=== PATIENT | female | born 1990 | race Caucasian/White ===

== ENCOUNTER 2017-10-11 18:10 | Inpatient (IN) ==
--- NOTE | 2017-10-11 18:04 | OB/GYN History & Physical ---
Date of Encounter: 10/11/17 Time of Encounter: 18:02 Assessment and Plan (1) SROM (spontaneous rupture of membranes) Current visit: Yes Status: Acute 27 y/o presents to L&D from [place] ED complaining of contractions for labor eval. Previous . Pt noted to be 2cm by physician in the ED, FHT 120 Pt transferred to [facility] and found to be ruptured and /-3 Pt admits do IVDU during current (last use 1.5 weeks ago meth), no PNC , does not know when LMP was. States she recently found out she was . Will obtain PN labs, HIV, Hep C, CBC, BMP, Type and screen, OB US, SW consult. Plan for based on history of primary , cervical dilation an SROM. (2) No care in current Current visit: Yes Status: Acute Qualifiers: Trimester: third trimester Qualified Code(s): O09.33 - Supervision of with insufficient care, third trimester (3) IVDU (intravenous drug user) Current visit: Yes Status: Acute (4) Obesity affecting in third trimester, antepartum Current visit: Yes Status: Acute History of Present Illness Chief complaint: Labor Eval HPI: Ms. Cruz is a 27 year old female at unknown gestational age who presents to L&D via EMS from [place] ED. She presented there after walking " a long way" from her mom's house. She states that she started feeling pressure and that she "had to poop" so her mom told her to go to the hospital. She states that this morning she was coughing and had thick, blood-tinged discharge. She notes some leaking vaginal fluid. She states that she can not recall when her LMP was, it may have been sometime before the 28 of January. She denies any PNC, stating she just found out recently that she was when her belly started getting bloated. She admits to IVDU, last used Meth IV or ICE (she can't remember which) about 1.5 weeks ago. She smokes cigarettes, but states not daily. She states that she had a previous 5 years ago. She is not sure why, but states she was in labor for 13 hours and asked if she wanted one. This was in [place]. Past Med Surg Social Fam HX - Past Medical History Medical history: no medical history Psychiatric history: no psych history - Past Surgical History Surgical History: , cholecystectomy - Social History Smoking Status: Current every day smoker Smokeless Tobacco Status: No Alcohol use: none Drug use: none Obstetrical History - Pregnancies : 2 Para: 1 Term: 1 : 0 Ab's: 0 Livin Medications and Allergies No Known Home Drugs 09/10/16 [History] 3 Allergy/AdvReac Type Severity Reaction Status Date / Time No Known Allergies Allergy Verified 12/22/15 23:20 Review of System OB All systems PM: reviewed and no additional remarkable complaints except as stated Exam - Constitutional Constitutional: well developed, well nourished, no acute distress, obese - HEENT HEENT: Normocephaly, Mucus Membranes Moist - Neck Neck exam: normal inspection, trachea midline - Lungs Respiratory exam: CTAB - Cardiovascular Cardiovascular exam: RRR, +S2 - Abdomen Abdomen: Present: bowel sounds normal, gravid, non tender - Extremities Extremities exam: normal capillary refill Deep Tendon Reflex Grade: 2+ Normal - Vagina Vagina: Present: normal moisture - Cervix Cervix: Present: discharge Dilation: 3 Effacement: 75 Station: -3 - Uterus Uterus exam: Present: normal size, normal contour - Anus/Rectum Anus/Rectum: Present: normal perianal skin - Comments Comments: track jimenez noted on arms Results All other labs normal.
[~2017-10-11 18:10] MED LIST: *HR* Nalbuphine 20 MG/ML AMPUL IVP PRN; Famotidine 20 MG/2 ML VIAL IVP PRN; Naloxone 0.4 MG/ML INJ IVP PRN; Ondansetron 4 MG/2 ML VIAL IVP PRN
[2017-10-11] MEDS ORDERED: Ringers Solution, Lactated 1,000 ML IVC SCH (18:15)
--- NOTE | 2017-10-11 18:33 | Anesthesia Evaluation PreOp ---
Date of Encounter: 10/11/17 Time of Encounter: 18:31 - Past History Planned Operation: csection Cardiac History: Denies any Significant Hx Pulmonary History: Smoker (less than 1 pack per day) FUR SEWER History: Denies Any Significant HX Other Medical History: Denies Any Significant HX Anesthesia History: No Prior Anesthetic Complications, Past Anesthesia (Lap nader) : Yes (no care, unknown gestation) Alcohol Use: none Drug use: none Medications and Allergies No Known Home Drugs 09/10/16 [History] 3 Allergy/AdvReac Type Severity Reaction Status Date / Time No Known Allergies Allergy Verified 12/22/15 23:20 - Meds/Allergy Pre-op Review Medications Reviewed: Yes Allergies Reviewed: Yes Beta Blockers on Current Med List: No Anesthesia Exam O2 Sat Height 1.68 m Weight 119 kg Height: 66 Weight: 119 NPO (# of Hours): greater than 8 hours - HEENT Pupil (Motor): Pupils equal Mallampati: II Teeth: Normal Oral Opening: Greater than 3 - FUR SEWER LOC: Oriented FUR SEWER Motor: Normal RUE, Normal LUE, Normal RLE, Normal LLE, Normal Face FUR SEWER Sensory: Normal: RUE, LUE, RLE, LLE, Face - Cardiac Rhythm: Regular Murmur: None JVD: No Carotid Bruit: No - Pulmonary Breath Sounds: bilateral Clear Respiratory Effort: Symmetrical Anesthesia Assess/Plan ASA Score: 2 Modified Marielena Scale for Level of Consciousness: Cooperative, oriented, and tranquil Anesthetic Plan: General (Plan B), Regional (Plan A) Monitoring Plan: Standard Monitors Recovery Plan: PACU
[2017-10-11] MEDS ORDERED: Morphine Sulfate/PF 5mg/10mL Vial ONE (18:42)
[2017-10-11] MEDS ORDERED: *HR* FentaNYL (PF) 100 MCG/2 ML VIAL ONE (18:42)
[2017-10-11 18:47] LABS: Basophils % 0.2 %; Eosinophils # 0.1 K/mcL (0.0-0.6); Eosinophils % 0.4 %; Hematocrit 36.5 % (35.3-44.9); Hemoglobin 11.9 g/dL (11.5-15.4); Immature Granulocytes % 0.5 % (0-4); Immature Platelets 3.5 % (1.1-6.1); Lymphocytes # 3.2 K/mcL (0.6-4.6); Lymphocytes % 23.9 %; Mean Corpuscular HGB Conc 32.6 g/dL (31.6-35.5); Mean Corpuscular Hemoglobin 26.2 pg (28.0-33.3); Mean Corpuscular Volume 80.2 fL (83.0-100.0); Monocytes # 0.6 K/mcL (0.0-1.3); Monocytes % 4.4 %; Neutrophils # 9.4 K/mcL (1.6-8.9); Platelet Count 314 K/mcL (140-400); Red Blood Count 4.55 M/mcL (3.82-4.97); Red Cell Distribution Width 13.5 % (11.5-14.5); Segmented Neutrophils % 70.6 %
[2017-10-11] MEDS ORDERED: Metoclopramide 10 MG/2 ML VIAL IVP ONE (18:51)
[2017-10-11 19:09] LABS: Albumin 3.3 g/dL (3.5-5.7); Albumin/Globulin Ratio 0.9 (1.1-2.2); Bilirubin,Direct 0.1 mg/dL (0.0-0.2); Bilirubin,Indirect 0.1 mg/dL (0.0-1.2); Bilirubin,Total 0.2 mg/dL (0.3-1.0); Globulin 3.6 g/dL (2.4-3.5); Total Protein 6.9 g/dL (6.4-8.9)
[2017-10-11] MEDS ORDERED: Ringers Solution, Lactated 1,000 ML ONE (19:39)
[2017-10-11] MEDS ORDERED: *HR* Promethazine 25 MG/ML VIAL IVP PRN (19:42)
[2017-10-11] MEDS ORDERED: *HR* OxyCODONE Immed Rel 5 MG TABLET PO PRN ×2 (19:42→23:29)
[2017-10-11] MEDS ORDERED: Ketorolac 30 MG/ML VIAL ONE (19:44)
[2017-10-11] MEDS ORDERED: *HR* Oxytocin 10 UNIT/ML VIAL IM ONE (19:55)
[2017-10-11] MEDS ORDERED: Oxytocin 20 units/ LR 1000 mL 20 UNIT/1,000 ML BAG IVC ONE ×2 (19:56→21:09)
--- NOTE | 2017-10-11 20:57 | OB/GYN Procedure Note ---
Section - Date of procedure: 10/11/17 Preop diagnosis: desires repeat , other (no care, IV drug user ) Post-op diagnosis: same Procedure: repeat low transverse Surgeon: Dragan Streeter Estimated blood loss (cc): 300 Was there an assistant store manager present: Yes Clinical Appeals Rn: Malorie Morley Anesthesiologist: Jaziel Mendoza Anesthesia Type: Spinal section complications: none Disposition: L&D Recovery Room Specimens: Placenta - Narrative Narrative: Patient was brought to the operating room with satisfactory spinal anesthesia. The abdomen was prepped and draped in a sterile fashion. A Pfannenstiel incision was made and carried sharply down to the level of fascia. The fascia was incised transversely. The fascia was dissected away from the underlying rectus muscles. With sharp and blunt dissection, the rectus muscles were divided in the midline. The perineum was entered bluntly. The incision was carried vertically with scissors. Transverse incision was made across the bladder peritoneum. The bladder was dissected away from the underlying lower uterine segment. Bladder retractor was placed to protect the bladder. The lower uterine segment was entered sharply with a scalpel. Incision was manually extended. Meconium stained amniotic fluid was encountered. Nuchal cord noted x2 , The 's head was pulled up and delivered easily as were the shoulders and body. The mouth and oropharynx were suctioned. The cord was clamped and cut. The infant was passed off to the waiting cement block maker in satisfactory condition. APGARS 8/8, weight 3000g(6lbs 10oz) Placenta was extracted completely and found to be intact. Uterus was explored and found to be empty. Uterus was massaged vigorously. Intravenous Pitocin was administered. The margins of the uterine incision were closed primarily with a running locking stitch of 0 Vicryl with adequate hemostasis. Secondary running locking stitch was placed for extra strength to the wound. The fascia was closed with a simple running stitch of 0 vicryl. The subcutaneous stitch was closed with 3-0 vicryl. The skin was closed with running subcuticular stitch of 4-0 vicryl. Patient was brought to the recovery room in satisfactory condition. There were no complications. All sponge, needle, and instrument counts were reported to be correct.
[2017-10-11] MEDS ORDERED: Sennosides 8.6 MG TABLET PO PRN (23:29)
[2017-10-11] MEDS ORDERED: Ondansetron 4 MG/2 ML VIAL IVP PRN (23:29)
[2017-10-11] MEDS ORDERED: Oxytocin 20 units/ LR 1000 mL 20 UNIT/1,000 ML BAG IVC SCH (23:29)
[2017-10-11] MEDS ORDERED: Simethicone 80 MG TAB.CHEW PO PRN (23:29)
[2017-10-11] MEDS ORDERED: Acetaminophen 325 MG TABLET PO PRN (23:29)
[2017-10-11] MEDS ORDERED: Naloxone 0.4 MG/ML INJ IVP PRN (23:29)
[2017-10-11] MEDS ORDERED: Metoclopramide 10 MG/2 ML VIAL IVP PRN (23:29)
[2017-10-12 02:39] LABS: Basophils % 0.2 %; Eosinophils # 0.1 K/mcL (0.0-0.6); Eosinophils % 0.4 %; Hematocrit 33.6 % (35.3-44.9); Hemoglobin 10.9 g/dL (11.5-15.4); Immature Granulocytes % 0.4 % (0-4); Lymphocytes # 3.1 K/mcL (0.6-4.6); Lymphocytes % 21.2 %; Mean Corpuscular HGB Conc 32.4 g/dL (31.6-35.5); Mean Corpuscular Volume 80.2 fL (83.0-100.0); Monocytes # 0.8 K/mcL (0.0-1.3); Monocytes % 5.3 %; Neutrophils # 10.6 K/mcL (1.6-8.9); Platelet Count 265 K/mcL (140-400); Red Blood Count 4.19 M/mcL (3.82-4.97); Red Cell Distribution Width 13.4 % (11.5-14.5); Segmented Neutrophils % 72.5 %
[2017-10-12] MEDS: Prenatal Vit/FA 1 EACH TABLET PO SCH (07:52)
[2017-10-12] MEDS: Ibuprofen 600 MG TABLET PO PRN ×2 (07:52→19:40)
--- NOTE | 2017-10-12 09:46 | OB/GYN Progress Note ---
Date of Encounter: 10/12/17 Time of Encounter: 09:45 - Assessment and Plan (1) delivery delivered Current Visit: Yes Status: Acute Pt meeting POD#1 milestones. Anticpate discharge home POD#2-3 (2) IVDU (intravenous drug user) Current Visit: Yes Status: Acute (3) Obesity affecting in third trimester, antepartum Current Visit: Yes Status: Acute Subjective - Subjective Patient reports: appetite normal, voiding normally, pain well controlled, ambulating normally : doing well Objective - Vital Signs Latest vital signs: Vital Signs Temp Pulse Resp BP Pulse Ox 10/12/17 08:08 97.5 F L 69 16 105/69 10/12/17 07:29 18 10/12/17 05:30 97.7 F 67 16 116/73 96 10/12/17 03:19 97.5 F L 10/12/17 02:15 97.1 F L 72 18 109/66 97 10/12/17 01:15 96.0 F L 73 16 109/66 97 10/12/17 00:40 96.1 F L 10/12/17 00:20 96.3 F L 10/12/17 00:15 66 16 116/76 96 10/11/17 23:45 79 16 110/73 95 10/11/17 23:43 95.1 F L 10/11/17 23:15 80 16 115/76 97 Intake and Output 10/11/17 10/12/17 10/12/17 23:59 07:59 15:59 Intake Total 0 / 0 120 / 120 Output Total 650 / 650 150 / 150 Balance -650 / -650 -30 / -30 Intake: Oral 0 / 0 Free Water 120 / 120 Output: Emesis 300 / 300 Catheter 350 / 350 150 / 150 Urethral (Hardy) 350 / 350 Other: Meal Breakfast Percent of Meal Consumed 100% Weight 119 kg - Exam Lungs: bilateral: normal Chest: Normal S1, Normal S2 Extremities: Present: edema (1+ bilaterally) Abdomen: Present: soft. Absent: tenderness Incision: Present: dressed (dressing with scant amount old drainage) Uterus: Present: firm - Labs Labs: Laboratory Results - last 24 hr 10/11/17 10/11/17 10/11/17 18:15 18:37 18:37 WBC 13.4 H RBC 4.55 Hgb 11.9 Hct 36.5 MCV 80.2 L MCH 26.2 L MCHC 32.6 RDW 13.5 Plt Count 314 MPV 10.0 Immature Gran % 0.5 Seg Neutrophils % 70.6 Lymphocytes % 23.9 Monocytes % 4.4 Eosinophils % 0.4 Basophils % 0.2 Neutrophils # 9.4 H Lymphocytes # 3.2 Monocytes # 0.6 Eosinophils # 0.1 Basophils # 0.0 Immature Plt Fraction 3.5 Total Bilirubin 0.2 L Direct Bilirubin 0.1 Indirect Bilirubin 0.1 AST 13 ALT 13 Alkaline Phosphatase 198 H Serum Total Protein 6.9 Albumin 3.3 L Globulin 3.6 H Albumin/Globulin Ratio 0.9 L Hep Bs Antigen Nonreactive HIV Ag/Ab Combo Qual Blood Type Antibody Screen 10/11/17 10/11/17 10/12/17 18:37 18:37 02:30 WBC 14.6 H RBC 4.19 Hgb 10.9 L Hct 33.6 L MCV 80.2 L MCH 26.0 L MCHC 32.4 RDW 13.4 Plt Count 265 MPV 10.0 Immature Gran % 0.4 Seg Neutrophils % 72.5 Lymphocytes % 21.2 Monocytes % 5.3 Eosinophils % 0.4 Basophils % 0.2 Neutrophils # 10.6 H Lymphocytes # 3.1 Monocytes # 0.8 Eosinophils # 0.1 Basophils # 0.0 Immature Plt Fraction Total Bilirubin Direct Bilirubin Indirect Bilirubin AST ALT Alkaline Phosphatase Serum Total Protein Albumin Globulin Albumin/Globulin Ratio Hep Bs Antigen HIV Ag/Ab Combo Qual Nonreactive Blood Type A POSITIVE Antibody Screen NEGATIVE
[2017-10-12] MEDS: *HR* OxyCODONE/APAP 5/325 TABLET PO PRN (19:40)
[2017-10-13] MEDS: *HR* OxyCODONE/APAP 5/325 TABLET PO PRN (07:31)
[2017-10-13] MEDS: Ibuprofen 600 MG TABLET PO PRN (07:32)
[2017-10-13] MEDS: Prenatal Vit/FA 1 EACH TABLET PO SCH (07:32)
[2017-10-13 07:54] VITALS: BP 105/63
--- NOTE | 2017-10-13 08:43 | Discharge Summary ---
Date of Encounter: 10/13/17 Time of Encounter: 08:40 - Discharge Diagnosis (1) delivery delivered Priority: Primary Status: Acute Comments: S/P Repeat C/S Day 2. VSS Pain is well controlled Lochia is light and without clots Voiding and passing stool without difficulty Tolerating regular diet; c/o increased abdominal bloating/gas, states passing flatus, bowel sound active Bottle feeding Discharge to guest. (2) IVDU (intravenous drug user) Priority: Secondary Status: Acute Comments: Dicussed with social work Patient denies any history of opiate abuse States she only used meth once and it was a time in her life when she said "f it ". Patient has multiple track jimenez along her forearms. [place] reviewed; no narcotic Rx in the past year from [place] and [facility] states found under patient's name, birthday, and zip code. Will discharge home with Rx for 3 days worth of [place] 5-325. (3) No care in current Priority: Secondary Status: Acute Qualifiers: Trimester: third trimester Qualified Code(s): O09.33 - Supervision of with insufficient care, third trimester - Discharge Medications Prescriptions: Ibuprofen [Motrin] 600 mg PO Q6HR PRN #30 tablet PRN Reason: Cramping Docusate [Colace] 100 mg PO BID #20 capsule Ferrous Sulfate 325 mg PO DAILY #60 tablet HYDROcodone/Acet 5/325 mg [[place] 5-325 mg] 1 tab PO Q6H PRN 3 Days #10 tab PRN Reason: moderate to severe pain Vit/FA 1 each PO DAILY #30 tablet Simethicone [Gas-X] 80 mg PO TID PRN #30 tab.chew PRN Reason: Dyspepsia Home Medications: Acetaminophen [Tylenol] 325 mg PO Q6HR PRN tablet 10/13/17 [Rx] Docusate [Colace] 100 mg PO BID #20 capsule 10/13/17 [Rx] Ferrous Sulfate 325 mg PO DAILY #60 tablet 10/13/17 [Rx] HYDROcodone/Acet 5/325 mg [[place] 5-325 mg] 1 tab PO Q6H PRN 3 Days #10 tab 10/13 [Rx] Ibuprofen [Motrin] 600 mg PO Q6HR PRN #30 tablet 10/13/17 [Rx] Vit/FA 1 each PO DAILY #30 tablet 10/13/17 [Rx] Simethicone [Gas-X] 80 mg PO TID PRN #30 tab.chew 10/13/17 [Rx] Allergies/Adverse Reactions: 3 Allergy/AdvReac Type Severity Reaction Status Date / Time No Known Allergies Allergy Verified 12/22/15 23:20 Data Procedures and tests throughout hospitalization: Laboratory Tests 10/11/17 10/11/17 10/11/17 18:15 18:37 18:37 WBC 13.4 H RBC 4.55 Hgb 11.9 Hct 36.5 MCV 80.2 L MCH 26.2 L MCHC 32.6 RDW 13.5 Plt Count 314 MPV 10.0 Immature Gran % 0.5 Seg Neutrophils % 70.6 Lymphocytes % 23.9 Monocytes % 4.4 Eosinophils % 0.4 Basophils % 0.2 Neutrophils # 9.4 H Lymphocytes # 3.2 Monocytes # 0.6 Eosinophils # 0.1 Basophils # 0.0 Immature Plt Fraction 3.5 Total Bilirubin 0.2 L Direct Bilirubin 0.1 Indirect Bilirubin 0.1 AST 13 ALT 13 Alkaline Phosphatase 198 H Serum Total Protein 6.9 Albumin 3.3 L Globulin 3.6 H Albumin/Globulin Ratio 0.9 L Hep Bs Antigen Nonreactive HIV Ag/Ab Combo Qual Blood Type Antibody Screen 10/11/17 10/11/17 10/12/17 18:37 18:37 02:30 WBC 14.6 H RBC 4.19 Hgb 10.9 L Hct 33.6 L MCV 80.2 L MCH 26.0 L MCHC 32.4 RDW 13.4 Plt Count 265 MPV 10.0 Immature Gran % 0.4 Seg Neutrophils % 72.5 Lymphocytes % 21.2 Monocytes % 5.3 Eosinophils % 0.4 Basophils % 0.2 Neutrophils # 10.6 H Lymphocytes # 3.1 Monocytes # 0.8 Eosinophils # 0.1 Basophils # 0.0 Immature Plt Fraction Total Bilirubin Direct Bilirubin Indirect Bilirubin AST ALT Alkaline Phosphatase Serum Total Protein Albumin Globulin Albumin/Globulin Ratio Hep Bs Antigen HIV Ag/Ab Combo Qual Nonreactive Blood Type A POSITIVE Antibody Screen NEGATIVE - Impressions ITS Impressions Ultrasound 10/11/17 17:52 IMPRESSION: Single live intrauterine with gestational age of 36 weeks 4 days by current sonographic biometry. The estimated due date is 11/04/2017. Limited study. No detailed anatomic survey performed. D/ / 10/11/2017 19:30:43 Patrick Crum MD / sara Interpreting Provider: Patrick Crum MD Date of admission: 10/11/17 18:10 Consults: 10/11/17 18:09 Consult to Reverse Logistics Analyst (W&C) [CONS] Stat Reason For Exam: Reason for SW Consult: No PNC, IVDU Discharging clinician: Ledy Downs Anticipated date of discharge: 10/13/17 - Patient Status Disposition: Home, Self-Care Condition: Good Functional capacity at discharge: independent ambulation Overall status at discharge: patient is progressing back to baseline - Discharge Instructions Follow Up With: Dragan Streeter MD [Partnered Physician] - (Follow up at 2 weeks and then at 6 weeks ) Additional Instructions: Perineal Care: Always wipe front to back Change your pad frequently Use your baldo bottle with warm water and spray front to back Do not douche, use tampons, have sexual intercourse or put anything in your vagina for 4-6 weeks after delivery Bleeding: Vaginal bleeding can last up to 6 weeks Your menstrual period may return as early as 6 weeks after you are discharged from the hospital Hesham/Stitches Care: Care Stitches will dissolve on their own You may shower with stitches or hesham Drip plain or soapy water over the incision to clean. Pat dry gently with a clean towel. Make sure you completely dry under the skin folds DO NOT USE powders, lotions, rubbing alcohol or hydrogen peroxide on or around your incision. This will slow your wound healing It is normal to have soreness, burning, tingling, itchiness and/or numbness as your incision heals Activity: Rest frequently Do not lift anything heavier than a gallon of milk, up to 10-15 pounds No driving for 2-4 weeks for delivery Take stairs slowly, one at a time Gradually increase your daily activity until you are back to your normal routine Do not exercise until you have had your follow-up appointment Bathing: Take a shower daily Do not take a tub bath for the first 4 weeks Diet: Drink plenty of water and fruit juices Eat a well-balanced diet with foods high in fiber such as fruits and vegetables Depression: Your hormones have a major impact on your feelings and emotions. Hormone imbalance may cause changes in your mood, creating unfamiliar thoughts and actions. Support is available to help you understand and cope with these feelings and mood changes. If you answer yes to any of the following questions, please call your health care provider: Are you having trouble sleeping? Are you feeling isolated? Have you lost your appetite? Are you having thoughts of hurting yourself or others? WARNING SIGNS: Heavy bleeding from the vagina (blood is bright red and soaks a sanitary pad in an hour or less.) Passing a blood clot larger than your fist Discharge from the vagina that has a bad odor Temperature over 100.4 F, or if you feel cold and have chills An episiotomy site that is warm, swollen or oozing. Use a mirror if needed Urination (pee) that is painful, very red and swollen or leaking fluid An incision that is painful, very red and swollen and leaking fluid An incision that has come open Breasts that are painful or full with flu like symptoms Redness, warmth or swelling in the calf of your leg Trouble breathing, dizziness, visual disturbance or faintness *Notify your health care provider immediately or go to the nearest Emergency Room if you experience any of the above signs.* To contact the nurses station 24 hours a day, For non-urgent, routine questions, please call the office at - Diet and Activity Activity: increase activity as tolerated Diet: regular diet Hospital Course Reason for admission: active labor, rupture of membranes, IUP at term Delivery: section Episiotomy: none Laceration: none Other procedures: none complications: none Discharge diagnosis: IUP at term delivered [place] baby: female Time spent discussing smoking cessation with patient: 3 to 10 minutes Time Attestation: Total time spent providing and/or coordinating discharge services: Time Spent: Less than 30 minutes - VTE Reasons for not Prescribing Prophylaxis: Treatment not Indicated - Low risk for VTE Documentation of Mechanical Device: Intermittent pneumatic compression device Exam - Constitutional Vitals: Temp Pulse Resp BP Pulse Ox 98.2 F 95 18 105/63 99 10/13/17 07:53 10/13/17 07:53 03/19/18 07:53 10/13/17 07:53 10/12/17 19:30 General appearance IM: cooperative, A&O X 3, pleasant - Respiratory Respiratory exam: Present: CTAB - Cardiovascular Cardiovascular exam IM: Present: RRR, +S1, +S2 - GI/Abdominal GI/Abdominal exam IM: normal bowel sounds, soft Incision: normal, dry (GLENN dressing in place and working; Scant amount of old outlined shadowing on dressing) - Uterine Tone: Firm Uterus Position: 1 Finger Below Umbilicus, Midline - Extremities Exam Extremities exam IM: Present: normal capillary refill, normal inspection, radial pulses palpable and symmetrical - Neurological Exam Neurological exam: alert, oriented X3, reflexes normal
[2017-10-16 08:20] LABS: Herpes Simplex PCR Qual Res NOT DETECTED
== END 2017-10-13 12:03 | disposition home or self-care (01) | DRG 765 ==
LOC: 1NENULAB → 1NENUOBS 23:19
PROVIDERS: ADMIT Advanced Practice Midwife; ATTEND Advanced Practice Midwife